=== PATIENT | male | born 1995 | race Caucasian/White ===

== ENCOUNTER 2017-03-24 22:56 | Emergency (ER) | payer OTHER ==
[2017-03-24 23:11] VITALS: BP 134/89
== END 2017-03-25 01:00 | disposition home or self-care (01) ==
LOC: ED 22:56
DX: L30.9 Dermatitis, unspecified (principal); R03.0 Elevated blood-pressure reading, without diagnosis of hypertension
CPT/HCPCS: J1100; Q0163